=== PATIENT | male | born 1950 | race Caucasian/White ===

== ENCOUNTER 2016-11-06 16:29 | Emergency (ER) | payer MEDICARE ==
[2016-11-06] MEDS ORDERED: cefTRIAXone(*) 1 GM in NS 0.9% 50 ML* 50 ML IVPB ONE (16:54)
[2016-11-06 17:36] VITALS: BP 149/81
[2016-11-06 18:12] LABS: Hematocrit 50 % (42-52); Hemoglobin 16.5 g/dl (14.0-18.0); Mean Corpuscular HGB Conc 33 g/dl (31-36); Mean Corpuscular Hemoglobin 31 pg (27-31); Mean Corpuscular Volume 93 fL (80-94); Mean Platelet Volume 8 um3 (7.4-10.4); Red Blood Count 5.39 10^6/ul (4.0-5.4); Red Cell Distribution Width 14 % (10.5-15); White Blood Count 11.7 10^3/ul (3.5-10.8)
[2016-11-06 18:19] LABS: Add Diff/Slide Review? Slide Review Added; Comments Flag Yes
[2016-11-06 18:27] LABS: Albumin 3.4 g/dL (3.2-5.2); Calcium 9.3 mg/dL (8.6-10.3); EGFR African American 111.4 (>60); EGFR Non-African American 86.6 (>60); Globulin 3.7 g/dL (2-4); Potassium 3.5 mmol/L (3.5-5.0); Total Bilirubin 0.4 mg/dL (0.2-1.0); Total Protein 7.1 g/dL (6.4-8.9)
[2016-11-06 18:29] LABS: Troponin I 0.01 ng/mL (<0.04)
[2016-11-06] MEDS ORDERED: Lidocaine 2% JELLY* 10 ML JELLY TOPICAL ONE (18:35)
[2016-11-06] MEDS ORDERED: Morphine INJ* 4 MG/ML 1 ML CARPUJECT IV ONE ×2 (18:35→19:21)
[2016-11-06] MEDS ORDERED: Ondansetron INJ* 2 MG/ML VIAL IV ONE (18:35)
[2016-11-06] MEDS ORDERED: Gentamicin ADULT (*) 160 MG in NS 0.9% 100 ML* 100 ML IVPB ONE (19:23)
[2016-11-06] MEDS ORDERED: Lidocaine 2% JELLY* 6 ML JELLY TOPICAL ONE (19:30)
--- NOTE | 2016-11-07 16:08 | ED ---
Isa Raymundo SooYoung, scribed for Brian Garcia MD on 11/06/16 at 1742 . GI/ HPI - HPI Summary HPI Summary: A 66 y/o M presents to ED with c/o urinary retention for past two days. Pt referred to ED by Dr. Lowery. At doctor's office, they did a US and found 500 mL of retained urine, and prostate appears infected. Associated sx: fever; dysuria, mild back pain, mood depression. Pt states that in the past, he had a lot of pain when a catheter was placed and while it was in. He says that Dr. Lowery said he had a small urethra. Pt did take a Motrin today. - History of Current Complaint Chief Complaint: EDUrogenitalProblems Time Seen by Provider: 11/06/16 16:59 Stated Complaint: SENT FROM DR LOWERY Hx Obtained From: Patient, Other: - Dr. Christensen Onset/Duration: Still Present Timing: Lasting Days Current Severity: Severe Pain Intensity: 9 - out of 10 Associated Signs and Symptoms: Positive: Fever, Dysuria, Other: - pos: mild back pain, mood depression - Allergy/Home Medications Allergies/Adverse Reactions: Allergies Allergy/AdvReac Type Severity Reaction Status Date / Time Sulfa Antibiotics Allergy Severe Hives Verified 10/16/16 10:23 Eggs or Egg-derived Products Allergy Diarrhea Verified 10/16/16 10:23 GLUTEN Allergy HEART Uncoded 10/16/16 10:23 PALPITATIONS PMH/Surg Hx/FS Hx/Imm Hx Previously Healthy: No GI History: Reports: Hx Gastroesophageal Reflux Disease, Hx Irritable Bowel - OCCASIONAL History: Reports: Other Problems/Disorders - ENLARGED PROSTATE, CONSISTENT PROSTITIS Musculoskeletal History: Reports: Hx Arthritis - GENERALIZED, Hx Bursitis, Hx Tendonitis - LEFT SHOULDER AND LEFT THUMB Sensory History: Reports: Hx Cataracts - BILAT, Hx Contacts or Glasses - GLASSES Denies: Hx Hearing Aid Opthamlomology History: Reports: Hx Cataracts - BILAT, Hx Contacts or Glasses - GLASSES Psychiatric History: Reports: Hx Anxiety, Hx Depression Denies: Hx Eating Disorder, Hx of Violent Episodes Against Others - Surgical History Surgery Procedure, Year, and Place: RIGHT INGUINAL HERNIA A CHILD- [facility]. TONSILLLECTOMY A CHILD- [facility]. 2002 BILATERAL INGUINAL HERNIA REPAIR, [facility] [place]. 02/2016 PHACOEMULSIFICATION LEFT EYE CATARACT WITH IOL IMPLANT, [facility] [place]. 10/02/2016 LASER SURGERY LEFT EYE FOR SCARRING, OFFICE Hx Anesthesia Reactions: Yes - ETHER MADE HIM VERY ILL Infectious Disease History: No Infectious Disease History: Denies: Traveled Outside the [place] in Last 30 Days - Family History Known Family History: Positive: Cardiac Disease - FATHER, Hypertension - GRANDMOTHER, Diabetes - GRANDMOTHER - Social History Occupation: Retired Lives: Alone Alcohol Use: None Hx Substance Use: No Substance Use Type: Reports: None Hx Tobacco Use: No Smoking Status (MU): Never Smoked Tobacco Have You Smoked in the Last Year: No Review of Systems Positive: Fever. Negative: Chills Negative: Erythema Negative: Sore Throat Negative: Chest Pain Negative: Shortness Of Breath, Cough Negative: Abdominal Pain, Vomiting, Nausea Positive: dysuria, other - pos: urinary retention. Negative: hematuria Positive: Myalgia - mild back pain. Negative: Edema Negative: Rash Neurological: Other - neg: dizziness Positive: Depressed All Other Systems Reviewed And Are Negative: Yes Physical Exam - Summary Physical Exam Summary: Constitutional: Well-developed, Well-nourished, Alert. (-) Distressed Skin: Warm, Dry HENT: Normocephalic; Atraumatic Eyes: Conjunctiva normal Neck: Musculoskeletal ROM normal neck. (-) JVD, (-) Stridor, (-) Tracheal deviation Cardio: Rhythm regular, rate normal, Heart sounds normal; Intact distal pulses; The pedal pulses are 2+ and symmetric. Radial pulses are 2+ and symmetric. (-) Murmur Pulmonary/Chest wall: Effort normal. (-) Respiratory distress, (-) Wheezes, (-) Rales Abd: Soft, (-) Distension, (-) Guarding, (-) Rebound; SUPRAPUBIC TENDERNESS; NO CVA TENDERNESS Musculoskeletal: (-) Edema Lymph: (-) Cervical adenopathy Neuro: Alert, Oriented x3 Psych: Mood and affect Normal Triage Information Reviewed: Yes Vital Signs On Initial Exam: Initial Vitals Temp Pulse Resp BP Pulse Ox 98.4 F 99 16 149/81 99 11/06/16 17:34 11/06/16 17:34 11/06/16 17:34 11/06/16 17:34 11/06/16 17:34 Vital Signs Reviewed: Yes Diagnostics - Vital Signs Vital Signs Temp Pulse Resp BP Pulse Ox 11/06/16 17:34 98.4 F 99 16 149/81 99 - Laboratory Result Diagrams: 11/06/16 18:04 11/06/16 18:04 Lab Statement: Any lab studies that have been ordered have been reviewed, and results considered in the medical decision making process. GIGU Course/Dx - Diagnoses Provider Diagnoses: Acute prostatitis, Urinary retention - Physician Notifications Discussed Care Of Patient With: 1715: Dr. Lowery, based on WBC and Creatine, it's OK to d/c pt, to follow up with Bernarda in 2 days. Discharge - Discharge Plan Condition: Stable Disposition: HOME Prescriptions: Ciprofloxacin TAB* [Cipro Tab*] 500 mg PO BID #42 tab HYDROcodone/ACETAMIN 5-325 MG* [Worthing 5-325 TAB*] 1 tab PO Q6H PRN #15 tab MDD 4 PRN Reason: Pain Scale 6-10 Patient Education Materials: Cortez Catheter Placement and Care (ED), Ciprofloxacin (By mouth), Hydrocodone/Acetaminophen (By mouth), Prostatitis (ED) , Urinary Retention in Men (ED) Referrals: Ana Cabrera MD [Primary Care Provider] - Darnell Lowery MD [Medical Doctor] - 2 Days Additional Instructions: Follow up with Dr. Lowery within 48 hours. Return to the emergency department for changing or worsening symptoms. The documentation as recorded by the Isa gabriel SooYoung accurately reflects the service I personally performed and the decisions made by , Brian Garcia MD.
== END 2016-11-06 19:57 | disposition home or self-care (01) ==
LOC: ED 16:29
DX: R33.9 Retention of urine, unspecified (principal); N41.0 Acute prostatitis; R50.9 Fever, unspecified; R30.0 Dysuria; M54.9 Dorsalgia, unspecified; F32.9 Major depressive disorder, single episode, unspecified
CPT/HCPCS: 36415; 80053; 83605; 84484; 85025; 85610; 85730; 87040; 96374; 96375; 99282; A9270-GY; J0696; J1580; J2270; J2405

== ENCOUNTER 2016-11-07 18:00 | Emergency (ER) | payer MEDICARE ==
[2016-11-07 18:09] VITALS: BP 153/88
--- NOTE | 2016-11-07 19:42 | ED ---
Dipesh Raymundo Claudia, scribed for Gio Conway MD on 11/07/16 at 1924 . GI/ HPI - HPI Summary HPI Summary: 66 year old male presents to the ED with complaints of his catheter draining. Pt notes that he was at [facility] [place] last night 11/06/2016 and was diagnosed with a prostate infection and a catheter was placed Pt noticed at about 17:00 this evening his catheter was not draining properly. Pt became concerned and decided to come to the ED. Pt notes that it was an intermittent episode and it is currently draining properly. - History of Current Complaint Chief Complaint: EDUrogenitalProblems Time Seen by Provider: 11/07/16 19:18 Stated Complaint: CATHETAR COMPLAINT Hx Obtained From: Patient Onset/Duration: Started Hours Ago - about 17:00 today Timing: Intermittent Pain Intensity: 5 Associated Signs and Symptoms: Positive: Other: - catheter draining complaint. Negative: Fever, Chills Aggravating Factor(s): Nothing Alleviating Factor(s): Nothing - Allergy/Home Medications Allergies/Adverse Reactions: Allergies Allergy/AdvReac Type Severity Reaction Status Date / Time Sulfa Antibiotics Allergy Severe Hives Verified 10/16/16 10:23 Eggs or Egg-derived Products Allergy Diarrhea Verified 10/16/16 10:23 GLUTEN Allergy HEART Uncoded 10/16/16 10:23 PALPITATIONS PMH/Surg Hx/FS Hx/Imm Hx Previously Healthy: Yes GI History: Reports: Hx Gastroesophageal Reflux Disease, Hx Irritable Bowel - OCCASIONAL History: Reports: Other Problems/Disorders - ENLARGED PROSTATE, CONSISTENT PROSTITIS Musculoskeletal History: Reports: Hx Arthritis - GENERALIZED, Hx Bursitis, Hx Tendonitis - LEFT SHOULDER AND LEFT THUMB Sensory History: Reports: Hx Cataracts - BILAT, Hx Contacts or Glasses - GLASSES Denies: Hx Hearing Aid Opthamlomology History: Reports: Hx Cataracts - BILAT, Hx Contacts or Glasses - GLASSES Psychiatric History: Reports: Hx Anxiety, Hx Depression Denies: Hx Eating Disorder, Hx of Violent Episodes Against Others - Surgical History Surgery Procedure, Year, and Place: RIGHT INGUINAL HERNIA A CHILD- [facility]. TONSILLLECTOMY A CHILD- [facility]. 2002 BILATERAL INGUINAL HERNIA REPAIR, [facility] [place]. 02/2016 PHACOEMULSIFICATION LEFT EYE CATARACT WITH IOL IMPLANT, [facility] [place]. 10/02/2016 LASER SURGERY LEFT EYE FOR SCARRING, OFFICE Hx Anesthesia Reactions: Yes - ETHER MADE HIM VERY ILL Infectious Disease History: No Infectious Disease History: Denies: Traveled Outside the US in Last 30 Days - Family History Known Family History: Positive: Cardiac Disease - FATHER, Hypertension - GRANDMOTHER, Diabetes - GRANDMOTHER - Social History Occupation: Retired Alcohol Use: None Hx Substance Use: No Substance Use Type: Reports: None Hx Tobacco Use: No Smoking Status (MU): Never Smoked Tobacco Have You Smoked in the Last Year: No Review of Systems Negative: Fever, Chills Eyes: Negative ENT: Negative Cardiovascular: Negative Respiratory: Negative Gastrointestinal: Negative Positive: other - improper catheter draining Musculoskeletal: Negative Skin: Negative Neurological: Negative Psychological: Normal All Other Systems Reviewed And Are Negative: Yes Physical Exam Triage Information Reviewed: Yes Vital Signs On Initial Exam: Initial Vitals Temp Pulse Resp BP Pulse Ox 98.8 F 93 16 153/88 99 11/07/16 18:06 11/07/16 18:06 11/07/16 18:06 11/07/16 18:06 11/07/16 18:06 Vital Signs Reviewed: Yes Appearance: Positive: Well-Appearing - anxious Skin: Positive: Warm Head/Face: Positive: Normal Head/Face Inspection ENT: Positive: Hearing grossly normal Respiratory/Lung Sounds: Positive: Breath Sounds Present Abdomen Description: Positive: Nontender, No Organomegaly, Soft Bowel Sounds: Positive: Present - bobo draining properly Musculoskeletal: Positive: Strength/ROM Intact Neurological: Positive: Alert, Oriented to Person Place, Time - Jenifer Coma Scale Coma Scale Total: 15 Diagnostics - Vital Signs Vital Signs Temp Pulse Resp BP Pulse Ox 11/07/16 18:06 98.8 F 93 16 153/88 99 - Laboratory Lab Statement: Any lab studies that have been ordered have been reviewed, and results considered in the medical decision making process. Re-Evaluation - Re-Evaluation First Eval Change: Improved GIGU Course/Dx - Course Assessment/Plan: Pt presents with intermittent improper catheter draining. Pt is currently asymptomatic and will follow-up with Dr. Menchaca this week. - Diagnoses Provider Diagnoses: URINARY RETENTION Discharge - Discharge Plan Condition: Stable Disposition: HOME Patient Education Materials: Urinary Retention in Men (ED), Bobo Catheter Placement and Care (ED) Referrals: Ana Cabrera MD [Primary Care Provider] - Darnell Menchaca MD [Medical Doctor] - 2 Days (Please follow-up. ) The documentation as recorded by the Dipesh gabriel Claudia accurately reflects the service I personally performed and the decisions made by me, Gio Conway MD.
[2016-11-07 23:41] LABS: Urine Bacteria Absent (Absent); Urine Bilirubin Negative (Negative); Urine Glucose 3+(>=500 mg/dL) (Negative); Urine Nitrite Negative (Negative)
== END 2016-11-07 19:52 | disposition home or self-care (01) ==
LOC: ED 18:00
DX: R33.9 Retention of urine, unspecified (principal)
CPT/HCPCS: 81003; 81015; 87086; 99282

== ENCOUNTER 2017-11-27 08:56 | Observation (INO) | payer MEDICARE ==
--- NOTE | 2017-11-14 09:40 | HP ---
CC: Dr. Ana Cabrera * HISTORY AND PHYSICAL: DATE OF PLANNED ADMISSION AND SURGERY: 11/27/17. HISTORY OF PRESENT ILLNESS: Mr. Townsend is a 67-year-old white male who is admitted with prostate enlargement, bladder outlet obstruction and recurrent episodes of prostatitis for transurethral resection of the prostate. I have been following Mr. Townsend for the last several years because of progressive symptoms of bladder outlet obstruction, recurrent episodes of acute prostatitis requiring frequent antibiotic treatments with quinolones. He could not tolerate tamsulosin or alfuzosin because of headaches. He has been maintained on finasteride 5 mg daily, and on Rapaflo 4 mg daily. More recently his voiding symptoms have worsened and he has been having nocturia about 2 to 3 times, day frequency every 2 hours with a slow stream, hesitancy, and feeling of incomplete bladder emptying. Office cystoscopy showed an enlarged, obstructing prostate with a prominent median lobe, and heavy bladder trabeculations. Post-void residual was elevated at 200 cc. Urodynamics study showed good detrusor function with voiding detrusor pressure of 70 cm of water. Because of the above history and findings, the failure of the medical treatment , and the recurrent episodes of prostatitis, a TURP was advised and accepted. PAST MEDICAL HISTORY AND SYSTEM REVIEW: He is in good health. He denies any cardiac or pulmonary diseases or symptoms. MEDICATIONS: He is on no other chronic medications. ALLERGIES: He reports being allergic to SULFA DRUGS. He has intolerance to TAMSULOSIN and ALFUZOSIN. PHYSICAL EXAMINATION GENERAL: Pleasant and healthy looking white male. VITAL SIGNS: Blood pressure 140/90. LUNGS: Clear. HEART: Regular and rhythmic. No murmurs. ABDOMEN: Soft, no masses, no tenderness and no CVA tenderness. EXTERNAL GENITALIA: Normal. RECTAL: Showed an enlarged, but nonsuspicious prostate. LABORATORY DATA: The patient had a PSA of 2.4 in 05/20 while on finasteride. IMPRESSION: Bladder outlet obstruction and prostate enlargement with recurrent episodes of acute prostatitis, elevated post void residual, while on medical treatment with Rapaflo and finasteride, with an enlarged prostate on cystoscopy and good detrusor function by urodynamics studies making him a good candidate for TURP. PLAN/RECOMMENDATIONS: I discussed the operation in detail with the patient. Some of the potential complications including hematuria, infection, a very small incidence of urinary incontinence, very high incidence of retrograde ejaculation. All his questions were answered. [id number]/[facility] #: [id number] RACQUEL
[~2017-11-27 08:56] MED LIST: Buffered Lidocaine 0.9% SYRIN* 5 ML/SYR SYRINGE INTRADERM ONE; Famotidine IV* 10 MG/ML 2 ML (20 mg) IV ONE
[2017-11-27] MEDS ORDERED: Buffered Lidocaine 0.9% SYRIN* 5 ML/SYR SYRINGE ONE (09:11)
[2017-11-27] MEDS ORDERED: cefTRIAXone(*) 2 GM ADDV.VIAL IVPB ONE (09:11)
[2017-11-27] MEDS ORDERED: Famotidine IV* 10 MG/ML 2 ML (20 mg) ONE (09:11)
[2017-11-27] MEDS ORDERED: Midazolam* 1 MG/ML 2 ML VIAL (2 MG) ONE ×2 (10:30→11:04)
[2017-11-27] MEDS ORDERED: fentaNYL* 50 MCG/ML 2 ML VIAL (100 MCG VIAL) ONE ×2 (10:30→19:21)
[2017-11-27] MEDS ORDERED: Ondansetron INJ* 2 MG/ML VIAL ONE (11:27)
[2017-11-27] MEDS ORDERED: Ketorolac INJ* 30 MG/ML 1 ML VIAL ONE (11:27)
[2017-11-27] MEDS ORDERED: Lidocaine 2% PF * 5 ML VIAL ONE (11:27)
[2017-11-27] MEDS ORDERED: Propofol* 10 MG/ML 20 ML BTL IV PUSH ONE (11:27)
[2017-11-27] MEDS ORDERED: Dexamethasone IV* 4 MG/ML 1 ML (4 MG) ONE (11:27)
[2017-11-27] MEDS ORDERED: EPHEDrine (Pressors)* 50 MG/ML VIAL ONE (11:42)
[2017-11-27] MEDS ORDERED: oxyCODONE TAB* 5 MG TAB PO PRN (11:46)
[2017-11-27] MEDS ORDERED: Acetaminophen TAB* 325 MG PO PRN (11:46)
[2017-11-27] MEDS ORDERED: HYDROmorphone INJ* 1 MG/ML CARPUJECT SYRINGE IV PRN (11:46)
[2017-11-27] MEDS ORDERED: Naloxone* 0.4 MG/ML 1 ML VIAL IV PRN ×2 (11:46→17:33)
[2017-11-27] MEDS ORDERED: DiMENhydriNATE IV* 50 MG/ML VIAL IV PUSH PRN (11:46)
[2017-11-27] MEDS ORDERED: oxyCODONE/Acetamin 5/325 MG* TAB PO PRN ×3 (14:08→21:00)
[2017-11-27] MEDS ORDERED: Lidocaine 2% JELLY* 6 ML JELLY TOPICAL PRN (14:09)
[2017-11-27] MEDS ORDERED: clonazePAM TAB(*) 1 MG PO PRN (14:54)
[2017-11-27] MEDS ORDERED: Famotidine SUSP* 40 MG/5 ML ORAL.SYRIN PO PRN (14:59)
[2017-11-27] MEDS ORDERED: Morphine INJ* 2 MG/ML 1 ML SYRINGE (TWO MG - NEW SYRINGE VERSION) ONE (15:31)
[2017-11-27] MEDS ORDERED: Morphine INJ* 2 MG/ML 1 ML SYRINGE (TWO MG - NEW SYRINGE VERSION) IV ONE (15:35)
[2017-11-27] MEDS ORDERED: Sodium Citrate/Citric Acid* 15 ML UDC ONE (16:03)
[2017-11-27] MEDS ORDERED: Metoclopramide IV* 5 MG/ML 2 ML VIAL ONE (16:03)
[2017-11-27] MEDS ORDERED: Sodium Citrate/Citric Acid* 15 ML UDC PO ONE (16:30)
[2017-11-27] MEDS ORDERED: Metoclopramide IV* 5 MG/ML 2 ML VIAL IV SLOW PU ONE (16:30)
[2017-11-27] MEDS ORDERED: Phenylephrine INJ* 10 MG/ML 1 ML VIAL (10 MG) ONE ×2 (16:43→16:44)
[2017-11-27] MEDS ORDERED: PROCHLORPERAZINE INJ 5 MG/ML 2 ML VIAL IV PRN (17:33)
[2017-11-27] MEDS ORDERED: Ondansetron INJ* 2 MG/ML VIAL IV PRN (17:33)
[2017-11-27] MEDS ORDERED: HYDROcodone/ACETAMIN 5-325 MG* 1 TAB PO PRN (17:33)
[2017-11-27] MEDS: fentaNYL* 50 MCG/ML 2 ML VIAL (100 MCG VIAL) IV PRN ×2 (19:24→19:34)
[2017-11-27] MEDS: Oxybutynin TAB* 5 MG PO PRN (20:21)
[2017-11-27] MEDS ORDERED: Ibuprofen TAB* 400 MG PO SCH (21:00)
--- NOTE | 2017-11-28 00:12 | OP ---
CC: Dr. Cabrera * DATE OF OPERATION: 11/27/17 - ROOM #338 DATE OF : 50 SURGEON: Darnell Menchaca MD ANESTHESIOLOGIST: Dr. Barnhart. ANESTHESIA: Spinal. PRE-OP DIAGNOSES: 1. Bladder outlet obstruction. 2. Benign prostatic hyperplasia. POST-OP DIAGNOSES: 1. Bladder outlet obstruction. 2. Benign prostatic hyperplasia. OPERATIVE PROCEDURE: Transurethral resection of the prostate. INDICATION FOR PROCEDURE: Mr. Townsend is a 67-year-old white male, who has a long history of a bladder outlet obstruction, prostate enlargement, recurrent episodes of acute prostatitis, who has been on medical treatment with Rapaflo and finasteride. He continued to be symptomatic. Postvoid bladder ultrasound showed residual of 200 cc. Cystoscopy showed an enlarged and an obstructing prostate. Urodynamic studies showed high voiding detrusor pressure. Because of the above history and above workup and the failure of medical treatment, TURP was advised and accepted. PATHOLOGY AT CYSTOSCOPY: The penile and bulbar urethrae looked normal. The prostatic urethra measured 3.5 cm in length and there was significant degree of obstruction by trilobar hyperplasia of the prostate. The prostate was vascular. Examination of the bladder showed moderate diffuse trabeculations. There were no suspicious bladder lesions seen. No calculi or diverticula were noted. There was a single ureteral orifice on each side and the orifices looked normal. DESCRIPTION OF PROCEDURE: After successful spinal anesthesia, the patient was placed in the lithotomy position and was prepped and draped for a cystoscopy. Cystoscopy was performed. The bladder was carefully inspected and the above findings were noted. The resectoscope was then introduced inside the bladder. Mannitol-sorbitol solution was used for irrigation and inflow and outflow were adjusted to avoid overdistention of the bladder. The median lobe was resected first to the level of the bladder neck fibers. The portions of the lateral lobes protruding inside the bladder neck were then resected circumferentially. The resectoscope was then positioned in the mid prostatic urethra and the prostate tissue was resected circumferentially. The resectoscope was then positioned at the level of the veru. Resection of the left lateral lobe was then performed, starting at 5 o'clock and proceeding anteriorly. The right lobe was resected next. There was a fair amount of anterior tissue that was resected. The residual anterior tissue and the apical tissue were resected last. The limits of the resection were the bladder neck proximally, the verumontanum distally, and the capsule circumferentially. The bleeders were electrocoagulated and controlled. The bladder was thoroughly irrigated and all the prostate chips were removed. At the completion of resection, the prostatic fossa was wide open. The external sphincter, the veru and the capsule were intact. There were a few open sinuses with venous oozing. No arterial bleeder was noted. The bladder neck, the bladder wall, and the ureteral orifices were all intact. No residual prostate chips were noted in the bladder after irrigation. The resectoscope was then removed. A size 22-Yakut Cortez catheter was then passed inside the bladder and the balloon inflated with 30 cc of water. The catheter was placed under gentle traction and taped to the right thigh of the patient. Irrigation yielded clear returns. The patient tolerated the procedure well and left the operating room in good condition. The blood loss was estimated at 100 cc. The specimen was prostate chips. [id number]/[facility] #: [id number] [facility] FACILITYDevorah
--- NOTE | 2017-11-28 05:05 | OP ---
DATE OF OPERATION: 11/27/17 - ROOM #338 DATE OF : 50 SURGEON: Darnell Menchaca MD ANESTHESIOLOGIST: Kate Ospina MD ANESTHESIA: Spinal. PRE-OP DIAGNOSIS: Post TURP bleeding. POST-OP DIAGNOSIS: Post TURP bleeding. OPERATIVE PROCEDURE: 1. Cystoscopy. 2. Fulguration of bleeders of prostate fossa. INDICATION FOR PROCEDURE: Mr. Townsend is a 67-year-old white male who has a long history of bladder outlet obstruction caused by prostate enlargement. He had failed medical treatment with persistent obstructive voiding symptoms and elevated postvoid residual and recurrent episodes of acute prostatitis. This morning, he underwent an uncomplicated transurethral resection of the prostate. At the end of the procedure, there was no evidence of any significant bleeding. He had Bobo catheter placed and that was on traction. In the PACU, his urine was pink to light modi in color. After his transfer to the floor his urine became modi color with clots and the nurses could not irrigate his Bobo. I replaced his Bobo with a 3 way bobo, placed on traction and on continuous bladder irrigation. He was observed for about 2 to 3 hours and the outflow remained bloody. Because of the persistent hematuria, he is taking back to the operating room for cystoscopy and fulguration. PATHOLOGY: At cystoscopy, the penile and bulbar urethra looked normal. There were well formed clots in the prostate fossa. There were about 30 cc of clots in the bladder. After evacuating the clots that were adherent to the prostate fossa, one arterial bleeder was noted at 5 o'clock just distal to the bladder neck. There were a few venous bleeders, but those were most likely provoked by the instrumentation and by the removal of the clots adherent to the prostate fossa. The bladder looked normal. The ureteral orifices looked normal. There was no bleeding from the bladder. DESCRIPTION OF PROCEDURE: After successful spinal anesthesia, patient was placed in the lithotomy position and was prepped and draped for cystoscopy. The resectoscope was introduced inside the bladder. The bladder was irrigated and the clots in the bladder were evacuated. Using the loop of the resectoscope, the clots in the prostate fossa were removed. Some of the venous bleeders were identified and were coagulated and controlled. The arterial bleeder was identified after removal of the clots in the posterior prostate fossa. It was fulgurated and controlled. Fulguration was then performed coagulating all venous oozers in the prostate fossa. At the completion of the procedure, there was no active bleeding noted. The prostate fossa was wide open. The external sphincter, the veru, the capsule, the bladder neck and trigone, and orifices were all intact. The resectoscope was then removed and then a size 22-Welsh 3-way Bobo catheter was introduced inside the bladder and the balloon inflated with 30 cc of water. The catheter was placed under gentle traction and taped to the right thigh of the patient. He was hooked up to continuous bladder irrigation and the outflow was clear. Irrigation was also clear. The patient tolerated the procedure well and left the operating room in good condition. The total blood loss between the clots evacuated and the oozing during the procedure amounted to about 100 cc or less. The patient tolerated the procedure well and left the operating room in good condition. [id number]/[facility] #: [id number] RACQUEL
[2017-11-28] MEDS: Oxybutynin TAB* 5 MG PO PRN (05:25)
[2017-11-28 05:28] LABS: Hematocrit 41 % (42-52); Hemoglobin 13.9 g/dl (14.0-18.0)
[2017-11-28 08:06] VITALS: BP 124/73
[2017-11-28] MEDS ORDERED: Vitamin THERAPEUTIC TAB PO SCH (09:00)
[2017-11-28] MEDS ORDERED: cefTRIAXone(*) 1 GM in NS 0.9% 50 ML* 50 ML IVPB ONE (09:00)
[2017-11-28] MEDS ORDERED: CHOLECALCIFEROL PO SCH (09:00)
[2017-11-28] MEDS ORDERED: Cetirizine* 10 MG TAB PO SCH (09:00)
[2017-11-28] MEDS ORDERED: FISH OIL PO SCH (09:00)
--- NOTE | 2017-11-28 23:15 | DS ---
DISCHARGE SUMMARY: DATE OF ADMISSION: 11/27/16 DATE OF DISCHARGE: 11/28/16 FINAL DIAGNOSES: 1. Benign prostatic hyperplasia. 2. Bladder outlet obstruction due to above. OPERATIONS: 1. Transurethral resection of the prostrate on 11/27/16. 2. Cystoscopy and fulguration of prostate bleeders on 11/27/16. HISTORY: Mr. Townsend is a 67-year-old white male who has long history of bladder outlet obstruction, recurrent episodes of prostatitis and history of urinary retention. He has been maintained on Rapaflo 4 mg daily and on finasteride 5 mg daily. He continue to be significantly symptomatic with recurrent urinary tract infections, obstructing voiding symptoms and elevated postvoid residual. Workup with cystoscopy showed a large obstructing prostate and bladder trabeculation. Urodynamic studies showed high voiding detrusor pressure and normal bladder function. Because of the above history and findings and the failure of medical treatment, TURP was advised and accepted. PAST MEDICAL HISTORY: Relevant for depression. He has history of GERD, on treatment. He is otherwise in very good health. He reports being allergic SULFA and to CODEINE. Preoperative lab work was within normal. His PSA was normal. Preoperative physical exam was normal. COURSE IN HOSPITAL: The patient was admitted on the morning of the surgery. He underwent transurethral resection of the prostrate under spinal anesthesia. He did well postoperatively and in the recovery room, his urine was pink to light modi in color. After he was transferred to the floor, he noted to have increasing gross hematuria, went into clot retention. The bladder was irrigated, changed his Cortez to a 3-way catheter and put him on continuous bladder irrigation and the Cortez placed on traction. The urine continued to be bloody. It was then decided to take him back to the operating room for a cystoscopy. The cystoscopy showed an arterial bleeder in the prostatic fossa. It was fulgurated. The patient did very well afterward. His urine remained clear after stopping the continuous irrigation and after releasing his catheter traction. His HH postoperatively was normal at 13.9/40. The patient is being discharged home as previously planned on his first postoperative day with the Cortez catheter. He is to continue on all his medications except the Rapaflo. I will see him in my office in 4 days for a catheter removal. [id number]/[facility] #: [id number] MTDDevorah
== END 2017-11-28 10:05 | disposition home or self-care (01) ==
LOC: OR 08:56 → SSU 14:45
PROVIDERS: ADMIT Urology; ATTEND Urology
PROC: 0VT08ZZ Resection of Prostate, Via Natural or Artificial Opening Endoscopic (ICD-10-PCS; 2017-11-27)
PROC: 0TJB8ZZ Inspection of Bladder, Via Natural or Artificial Opening Endoscopic (ICD-10-PCS; principal; 2017-11-27 11:15)
DX: D29.1 Benign neoplasm of prostate (principal); N32.0 Bladder-neck obstruction; Z87.440 Personal history of urinary (tract) infections; Z87.19 Personal history of other diseases of the digestive system
CPT/HCPCS: 36415; 85014; 85018; 88305; 96374; 96375; A9270-GY; G0378; J0696; J1100; J1885; J2250; J2270; J2405; J2704; J2765; J3010

== ENCOUNTER 2020-04-27 05:52 | Observation (INO) ==
[2020-04-27] MEDS ORDERED: Lactated Ringers 1000 ml BAG 1,000 ML IV SCH (06:00)
[2020-04-27] MEDS ORDERED: Buffered Lidocaine 1% SYRIN 1 ml INTRADERM ONE (06:17)
[2020-04-27] MEDS ORDERED: cefTRIAXone(*) 2 GM ADDV.VIAL ONE (06:17)
[2020-04-27] MEDS ORDERED: fentaNYL 100 mcg/2 ml 50 MCG/ML VIAL ONE (07:19)
[2020-04-27] MEDS ORDERED: Dexamethasone IV 4 MG/ML VIAL 1 ml VIAL ONE (07:43)
[2020-04-27] MEDS ORDERED: Propofol 10 MG/ML 20 ML BTL ONE (07:43)
[2020-04-27] MEDS ORDERED: Ondansetron 4 mg VIAL 2 MG/ML 2 ml VIAL ONE (07:43)
[2020-04-27] MEDS ORDERED: Lidocaine 2% PF 5 ML VIAL ONE (07:43)
[2020-04-27] MEDS ORDERED: Acetaminophen IV 1 GM/100ML 100 ML ONE (08:12)
[2020-04-27] MEDS ORDERED: HYDROmorphone 1 MG/1 ML SYRINGE ONE (08:55)
[2020-04-27] MEDS ORDERED: HYDROmorphone 1 MG/1 ML SYRINGE IV PRN (09:44)
[2020-04-27] MEDS ORDERED: Naloxone 0.4 mg VIAL 0.4 mg/ml 1 ml VIAL IV PRN (09:44)
[2020-04-27] MEDS ORDERED: HYDROmorphone 0.5 MG/0.5 ML SYRINGE IV ONE (10:00)
[2020-04-27] MEDS: NS 0.9% 1000 ml BAG 1,000 ML IV SCH ×3 (10:44→23:30)
[2020-04-27] MEDS: oxyCODONE/Acetamin 5/325 mg TAB PO PRN ×3 (10:55→18:56)
[2020-04-27] MEDS: Diazepam 5 mg TAB (*) PO PRN ×2 (12:46→18:55)
[2020-04-27] MEDS: clonazePAM 1 mg TAB(*) PO PRN (23:26)
[2020-04-28] MEDS: clonazePAM 1 mg TAB(*) PO PRN (03:13)
[2020-04-28] MEDS: NS 0.9% 1000 ml BAG 1,000 ML IV SCH (06:06)
[2020-04-28] MEDS ORDERED: cefTRIAXone 1 gm/50 mL NS BAG 1 GM/50 ML BAG IVPB ONE (07:30)
[2020-04-28 07:40] VITALS: BP 150/78
[2020-04-28] MEDS ORDERED: CMCS: OMEGA-3 FATTY ACID 1000 mg(NF) PO SCH (09:00)
[2020-04-28] MEDS ORDERED: MAGNESIUM 500 MG PO SCH (09:00)
[2020-04-28] MEDS ORDERED: Tadalafil 20 mg TAB (NF) PO SCH (09:00)
== END 2020-04-28 10:13 | disposition home or self-care (01) ==
LOC: SSU 05:52 → OR 05:52
PROVIDERS: ADMIT Urology; ATTEND Urology